=== PATIENT | male | born 1985 | race American Indian/Alaskan Native ===

== ENCOUNTER 2016-08-19 03:42 | Emergency (ER) | payer OTHER ==
[2016-08-19 12:21] VITALS: BP 128/84
[2016-08-19] MEDS ORDERED: NORCO 5/325 PO ONE (12:28)
[2016-08-19 12:44] LABS: Basophils % (Auto) 0.5 % (0.0-1.8); Eosinophils % (Auto) 2.8 % (0.0-4.3); Hematocrit 39.9 % (35.5-45.6); Hemoglobin 13.5 gm/dl (11.8-15.2); Mean Corpuscular HGB Conc 34 % (32-34); Mean Corpuscular Hemoglobin 27 pg (28-32); Mean Corpuscular Volume 79 fl (84-94); Platelet Count 209 K/mm3 (140-440); Red Blood Count 5.03 M/mm3 (3.65-5.03); Red Cell Distribution Width 14.7 % (13.2-15.2); White Blood Count 7.5 K/mm3 (4.5-11.0)
--- NOTE | 2016-08-19 12:44 | Emergency Department Report ---
- General Chief Complaint: Wound/Laceration Stated Complaint: ULCERS ON L FOOT/PAIN Time Seen by Provider: 08/19/16 12:22 Source: patient Mode of arrival: Ambulatory Limitations: No Limitations - History of Present Illness Initial Comments: 31-year-old male presents emergency department complaining of ulcerations to his left foot. Patient reports 2 areas on the sole of his left foot. One area has been present for one week. The second area has been present for 5 days. Patient reports he has been having mild, aching pain. The pain became sharp last night around 11 PM. Patient denies radiation of the pain. He denies fever. Patient does report occasional tingling in his feet. There are no other complaints. -: Gradual, week(s) (1) Extremity Location: Left: Foot Place: home Associated Symptoms: pain - Related Data Previous Rx's Medication Instructions Recorded Last Taken Type HYDROcodone/APAP 5-325 [Marion 1 each PO Q6HR PRN #30 tablet 08/19/16 Unknown Rx 5/325] Allergies Allergy/AdvReac Type Severity Reaction Status Date / Time No Known Allergies Allergy Unverified 10/19/13 01:06 ED Review of Systems ROS: Stated complaint: ULCERS ON L FOOT/PAIN Other details as noted in HPI Comment: All other systems reviewed and negative Constitutional: denies: fever Musculoskeletal: as per HPI ED Past Medical Hx - Past Medical History Previous Medical History?: Yes Hx Hypertension: Yes Hx Diabetes: Yes Additional medical history: Scoliosis - Surgical History Past Surgical History?: Yes Additional Surgical History: Cyst removed from left chest - Family History Family history: no significant - Social History Smoking Status: Never Smoker Substance Use Type: None - Medications Home Medications: Home Medications Medication Instructions Recorded Confirmed Last Taken Type HYDROcodone/APAP 5-325 [Marion 1 each PO Q6HR PRN #30 tablet 08/19/16 Unknown Rx 5/325] ED Physical Exam - General Limitations: No Limitations General appearance: alert, in no apparent distress - Head Head exam: Present: atraumatic, normocephalic - Eye Eye exam: Present: normal appearance, PERRL, EOMI - ENT ENT exam: Present: normal exam, normal orophraynx, mucous membranes moist - Neck Neck exam: Present: normal inspection, full ROM. Absent: tenderness - Respiratory Respiratory exam: Present: normal lung sounds bilaterally. Absent: respiratory distress - Cardiovascular Cardiovascular Exam: Present: regular rate, normal rhythm, normal heart sounds - GI/Abdominal GI/Abdominal exam: Present: soft, normal bowel sounds. Absent: distended, tenderness - Extremities Exam Extremities exam: Present: full ROM, other (macerated skin noted to the medial aspect of the plantar surface of the left midfoot. No surrounding erythema or drainage. There is a second ecchymotic area on the medial plantar surface of the left first MTP joint. No tenderness to palpation. No surrounding erythema. ). Absent: tenderness - Back Exam Back exam: Present: normal inspection, full ROM. Absent: tenderness - Neurological Exam Neurological exam: Present: alert, oriented X3. Absent: motor sensory deficit - Skin Skin exam: Present: warm, dry, intact ED Course Vital Signs 08/19/16 08/19/16 08/19/16 03:50 03:54 08:57 Temperature 98.8 F 98.8 F 98.3 F Pulse Rate 90 90 80 Respiratory 20 20 18 Rate Blood Pressure 155/108 136/98 Blood Pressure 155/108 [Right] O2 Sat by Pulse 100 100 99 Oximetry 08/19/16 08/19/16 08/19/16 11:08 11:10 12:00 Temperature Pulse Rate Respiratory Rate Blood Pressure 142/87 128/84 Blood Pressure [Right] O2 Sat by Pulse 99 100 100 Oximetry 08/19/16 08/19/16 12:20 12:58 Temperature 98.0 F Pulse Rate Respiratory 18 Rate Blood Pressure Blood Pressure [Right] O2 Sat by Pulse Oximetry ED Medical Decision Making - Lab Data Result diagrams: 08/19/16 12:28 08/19/16 12:28 - Medical Decision Making Lab results reviewed and discussed with the patient. Clean dressings will be applied to the wounds. Patient will be discharged home at this time to follow up with his primary care physician. - Differential Diagnosis diabetic foot ulcer Critical care attestation.: If time is entered above; I have spent that time in minutes in the direct care of this critically ill patient, excluding procedure time. ED Disposition Clinical Impression: Diabetic foot ulcer Qualifiers: Diabetes mellitus type: type 2 Laterality: left Qualified Code(s): E11.621 - Type 2 diabetes mellitus with foot ulcer; L97.529 - Non-pressure chronic ulcer of other part of left foot with unspecified severity Disposition: DISCHARGED TO HOME OR SELFCARE Is pt being admited?: No Condition: Stable Instructions: Diabetes Mellitus Type 2 in Adults (ED) Prescriptions: HYDROcodone/APAP 5-325 [Marion 5/325] 1 each PO Q6HR PRN #30 tablet PRN Reason: Pain Referrals: JOSE LINCOLN MD [Primary Care Provider] - 3-5 Days [facility] [Provider Group] - 3-5 Days Time of Disposition: 13:11
[2016-08-19 12:58] LABS: Anion Gap 18 mmol/L; BUN/Creatinine Ratio 8.57; Blood Urea Nitrogen 6 mg/dL (9-20); Calcium 8.9 mg/dL (8.4-10.2); Carbon Dioxide 25 mmol/L (22-30); Chloride 102.1 mmol/L (98-107); Glucose 241 mg/dL (75-100); Sodium 141 mmol/L (137-145)
== END 2016-08-19 14:00 | disposition home or self-care (01) ==
LOC: ED 03:42
DX: E11.621 Type 2 diabetes mellitus with foot ulcer (principal); L97.529 Non-pressure chronic ulcer of other part of left foot with unspecified severity; I10 Essential (primary) hypertension
CPT/HCPCS: 36415; 80048; 82962; 85025; 99283

== ENCOUNTER 2016-12-17 17:39 | Emergency (ER) | payer OTHER ==
--- NOTE | 2016-12-17 18:53 | Emergency Department Report ---
Chief Complaint: Wound/Laceration Stated Complaint: NAIL IN BOOT AT WORK/NEEDS TETANUS SHOT Time Seen by Provider: 12/17/16 18:52 - HPI History of Present Illness: Patient here reports that he cut his right foot on screw today at work. He states that he didn't feel it. Patient is diabetic and has neuropathy. He said when he took his steel toed boots off he noticed that his foot was read and there was a screw and side issue. Patient said he is not sure were on his foot the cut is on. Patient stated that he needed tetanus shot. Patient also said he has ulcer to that right foot. His blood sugar in triage was 145. Denies any fever or chills. Reports pain is 5 out of 10 and sore. - ROS Review of Systems: All systems are negative unless stated in HPI above - Exam Vital Signs: Vital Signs 12/17/16 18:29 Temperature 98.8 F Pulse Rate 96 H Respiratory 18 Rate Blood Pressure 130/87 O2 Sat by Pulse 100 Oximetry Physical Exam: General: This is a 31-year-old male well-nourished well-developed in no acute distress. Extremity: Right foot with bleeding and an ulcer. Tender to palpate. +2 pedal pulses. Foot is in poor condition for a diabetic. MSE screening note: Focused history and physical exam performed. Due to findings the following was ordered:SEE MDM ED Medical Decision Making - Medical Decision Making MDM: Patient screened by provider. Labs: CBC, BMP. Blood glucose at 145 POC Diagnostic: Three-view x-ray left foot ordered to rule out osteomyelitis. Patient updated on plan and he is in agreement. ED Disposition for MSE Condition: Stable
[2016-12-17 19:59] LABS: Blood Urea Nitrogen 12 mg/dL (9-20); Calcium 9.1 mg/dL (8.4-10.2); Carbon Dioxide 27 mmol/L (22-30); Glucose 131 mg/dL (75-100)
[2016-12-17 20:00] LABS: Anion Gap 15 mmol/L; Sodium 138 mmol/L (137-145)
[2016-12-17 20:03] LABS: Basophils % (Auto) 0.7 % (0.0-1.8); Eosinophils % (Auto) 2.8 % (0.0-4.3); Hematocrit 40.1 % (35.5-45.6); Hemoglobin 13.5 gm/dl (11.8-15.2); Mean Corpuscular HGB Conc 34 % (32-34); Mean Corpuscular Hemoglobin 27 pg (28-32); Mean Corpuscular Volume 80 fl (84-94); Platelet Count 246 K/mm3 (140-440); Red Blood Count 5.02 M/mm3 (3.65-5.03); Red Cell Distribution Width 14.7 % (13.2-15.2); White Blood Count 10.3 K/mm3 (4.5-11.0)
[2016-12-17 20:18] VITALS: BP 142/83
[2016-12-17] MEDS ORDERED: BOOSTRIX IM ONE (20:18)
--- NOTE | 2016-12-17 20:18 | Emergency Department Report ---
- General Chief Complaint: Wound/Laceration Stated Complaint: NAIL IN BOOT AT WORK/NEEDS TETANUS SHOT Time Seen by Provider: 12/17/16 18:52 Source: patient Mode of arrival: Ambulatory Limitations: No Limitations - History of Present Illness Initial Comments: 31-year-old male past medical history diabetes, diabetic foot ulcers presents with complaint of abrasions and possible puncture wounds right great toe. 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 States that it was not lodged in his foot but he did notice some bleeding in his distal toe region. Patient denies any significant pain. Patient has a diabetic foot ulcer that is healing on the top aspect of his right second toe with a bandage dressing on top. States he noticed pressure in his foot took his shoe off and a screw fell out of his shoe Onset/Timin -: hour(s) Location: other Extremity Location: Right: Foot (in total region) 1 - smal abrasions here Place: work Patient Tetanus UTD: No Context: accidental Associated Symptoms: none - Related Data Home Medications Medication Instructions Recorded Confirmed Last Taken Insulin Aspart Prot/Aspart(Nf) 20 units SQ DAILY 12/17/16 12/17/16 12/17/16 [NovoLOG Mix 70/30 VIAL] NovoLOG Mix 70/30 VIAL 12 units SQ HS 12/17/16 12/17/16 1 Day Ago metFORMIN [Glucophage] 500 mg PO BID 12/17/16 12/17/16 12/17/16 Previous Rx's Medication Instructions Recorded Last Taken Type Acetaminophen [Acetaminophen TAB] 500 mg PO Q6HR PRN #20 tablet 12/17/16 Unknown Rx Ciprofloxacin HCl [Ciprofloxacin 500 mg PO Q12H #14 tab 12/17/16 Unknown Rx TAB] Sulfamethoxazole/Trimethoprim 1 each PO BID #14 tablet 12/17/16 Unknown Rx [Bactrim DS TAB] Allergies Allergy/AdvReac Type Severity Reaction Status Date / Time No Known Allergies Allergy Unverified 10/19/13 01:06 ED Review of Systems ROS: Stated complaint: NAIL IN BOOT AT WORK/NEEDS TETANUS SHOT Other details as noted in HPI Constitutional: denies: chills, fever Eyes: denies: eye pain, eye discharge, vision change ENT: denies: ear pain, throat pain Respiratory: denies: cough, shortness of breath, wheezing Cardiovascular: denies: chest pain, palpitations Endocrine: no symptoms reported Gastrointestinal: denies: abdominal pain, nausea, diarrhea Genitourinary: denies: urgency, dysuria Musculoskeletal: denies: back pain, joint swelling, arthralgia Skin: denies: rash, lesions Neurological: denies: headache, weakness, paresthesias Psychiatric: denies: anxiety, depression Hematological/Lymphatic: denies: easy bleeding, easy bruising ED Past Medical Hx - Past Medical History Previous Medical History?: Yes Hx Hypertension: Yes Hx Diabetes: Yes Additional medical history: Scoliosis - Surgical History Past Surgical History?: Yes Additional Surgical History: Cyst removed from left chest - Social History Smoking Status: Never Smoker Substance Use Type: None - Medications Home Medications: Home Medications Medication Instructions Recorded Confirmed Last Taken Type Acetaminophen [Acetaminophen TAB] 500 mg PO Q6HR PRN #20 tablet 12/17/16 Unknown Rx Ciprofloxacin HCl [Ciprofloxacin 500 mg PO Q12H #14 tab 12/17/16 Unknown Rx TAB] Insulin Aspart Prot/Aspart(Nf) 20 units SQ DAILY 12/17/16 12/17/16 12/17/16 History [NovoLOG Mix 70/30 VIAL] NovoLOG Mix 70/30 VIAL 12 units SQ HS 12/17/16 12/17/16 1 Day Ago History Sulfamethoxazole/Trimethoprim 1 each PO BID #14 tablet 12/17/16 Unknown Rx [Bactrim DS TAB] metFORMIN [Glucophage] 500 mg PO BID 12/17/16 12/17/16 12/17/16 History ED Physical Exam - General Limitations: No Limitations General appearance: alert, in no apparent distress - Head Head exam: Present: atraumatic, normocephalic - Eye Eye exam: Present: normal appearance, PERRL, EOMI - ENT ENT exam: Present: mucous membranes moist - Neck Neck exam: Present: normal inspection, full ROM - Respiratory Respiratory exam: Present: normal lung sounds bilaterally. Absent: respiratory distress - Cardiovascular Cardiovascular Exam: Present: regular rate, normal rhythm. Absent: systolic murmur, diastolic murmur, rubs, gallop - GI/Abdominal GI/Abdominal exam: Present: soft, normal bowel sounds - Rectal Rectal exam: Present: deferred - Extremities Exam Extremities exam: Present: normal inspection - Expanded Lower Extremity Exam Right Hip exam: Present: normal inspection, full ROM Upper Leg exam: Present: normal inspection, full ROM Knee exam: Present: normal inspection, full ROM Lower Leg exam: Present: normal inspection, full ROM Ankle exam: Present: normal inspection, full ROM Foot/Toe exam: Present: abrasion (multiple small abrasions first and second toe) , deformity (there is a healing ulcer on the top aspect of the right second toe) , puncture wound (small puncture wound base of her right great toe) Neuro vascular tendon exam: Present: no vascular compromise (still dorsalis pedis and posterior tibial pulses are intact, distal sensation is intact to light touch and to sharp sensation) Gait: Positive: observed and normal 1 - Healing ulcer here 1 - Small puncture wound less than half a centimeter here - Back Exam Back exam: Present: normal inspection - Neurological Exam Neurological exam: Present: alert, oriented X3, CN II-XII intact, normal gait - Psychiatric Psychiatric exam: Present: normal affect, normal mood - Skin Skin exam: Present: warm, dry, intact, normal color. Absent: rash ED Course Vital Signs 12/17/16 18:29 Temperature 98.8 F Pulse Rate 96 H Respiratory 18 Rate Blood Pressure 130/87 O2 Sat by Pulse 100 Oximetry ED Medical Decision Making - Lab Data Result diagrams: 12/17/16 19:26 12/17/16 19:26 - Medical Decision Making A/P: Puncture wound right great toe 1-patient is diabetic will cover empirically with Bactrim as well as ciprofloxacin. Thighs patient to return to the ED for any fevers chills pus drainage or erythema and swelling of the right foot 2-x-ray unremarkable labs unremarkable 3-tetanus update 4-triple antibiotic ointment to abrasions 5- patient states he has podiatry appointment on Tuesday and will continue to follow-up Critical care attestation.: If time is entered above; I have spent that time in minutes in the direct care of this critically ill patient, excluding procedure time. ED Disposition Clinical Impression: Puncture wound of right great toe w/o foreign body w/o damage to nail Qualifiers: Encounter type: initial encounter Qualified Code(s): S91.131A - Puncture wound without foreign body of right great toe without damage to nail, initial encounter Disposition: TO HOME OR SELFCARE Is pt being admited?: No Does the pt Need Aspirin: No Condition: Stable Instructions: Puncture Wound (ED) Prescriptions: Acetaminophen [Acetaminophen TAB] 500 mg PO Q6HR PRN #20 tablet PRN Reason: Pain Ciprofloxacin HCl [Ciprofloxacin TAB] 500 mg PO Q12H #14 tab Sulfamethoxazole/Trimethoprim [Bactrim DS TAB] 1 each PO BID #14 tablet Referrals: RALPH MIRANDA DPM [Staff Physician] - 3-5 Days Forms: Accompanied Note, Work/School Release Form(ED) Time of Disposition: 20:24
--- NOTE | 2016-12-18 09:22 | XRay Report ---
RIGHT FOOT THREE VIEWS: 12/17/16 17:39:00 CLINICAL: Diabetic foot ulcer and soft tissue swelling. FINDINGS: No fracture or dislocation. Hallux valgus deformity. Mild degenerative change with a small plantar calcaneal spur. No bone lesions and no erosive changes in the bones. No soft tissue air. IMPRESSION: Nonspecific soft tissue swelling. No signs of osteomyelitis.
== END 2016-12-17 20:40 | disposition home or self-care (01) ==
LOC: ED 17:39
DX: S91.131A Puncture wound without foreign body of right great toe without damage to nail, initial encounter (principal); I10 Essential (primary) hypertension; E11.9 Type 2 diabetes mellitus without complications; W45.0XXA Nail entering through skin, initial encounter; Y93.89 Activity, other specified; Y99.9 Unspecified external cause status; Y92.89 Other specified places as the place of occurrence of the external cause
CPT/HCPCS: 36415; 80048; 82962; 85025; 90471; 90715

== ENCOUNTER 2016-12-18 15:08 | Emergency (ER) | payer OTHER ==
[2016-12-18 16:16] LABS: Basophils % (Auto) 0.5 % (0.0-1.8); Eosinophils % (Auto) 2.8 % (0.0-4.3); Hematocrit 41.3 % (35.5-45.6); Hemoglobin 14.1 gm/dl (11.8-15.2); Mean Corpuscular HGB Conc 34 % (32-34); Mean Corpuscular Hemoglobin 27 pg (28-32); Mean Corpuscular Volume 80 fl (84-94); Platelet Count 250 K/mm3 (140-440); Red Blood Count 5.17 M/mm3 (3.65-5.03); Red Cell Distribution Width 14.6 % (13.2-15.2); White Blood Count 10.8 K/mm3 (4.5-11.0)
[2016-12-18] MEDS ORDERED: ANCEF IM ONE (21:34)
--- NOTE | 2016-12-18 21:38 | Emergency Department Report ---
- General Chief Complaint: Wound/Laceration Stated Complaint: rt foot wound. here last pm. did not follow instructions and played soccer. now open wound Time Seen by Provider: 12/18/16 21:19 Source: patient Mode of arrival: Ambulatory Limitations: No Limitations - History of Present Illness Extremity Location: Right: Foot Place: home Patient Tetanus UTD: Yes Context: accidental Associated Symptoms: none - Related Data Home Medications Medication Instructions Recorded Confirmed Last Taken Insulin Aspart Prot/Aspart(Nf) 20 units SQ DAILY 12/17/16 12/17/16 12/17/16 [NovoLOG Mix 70/30 VIAL] NovoLOG Mix 70/30 VIAL 12 units SQ HS 12/17/16 12/17/16 1 Day Ago metFORMIN [Glucophage] 500 mg PO BID 12/17/16 12/17/16 12/17/16 Previous Rx's Medication Instructions Recorded Last Taken Type Acetaminophen [Acetaminophen TAB] 500 mg PO Q6HR PRN #20 tablet 12/17/16 Unknown Rx Ciprofloxacin HCl [Ciprofloxacin 500 mg PO Q12H #14 tab 12/17/16 Unknown Rx TAB] Sulfamethoxazole/Trimethoprim 1 each PO BID #14 tablet 12/17/16 Unknown Rx [Bactrim DS TAB] Allergies Allergy/AdvReac Type Severity Reaction Status Date / Time No Known Allergies Allergy Verified 12/18/16 15:23 ED Review of Systems ROS: Stated complaint: RT FOOT PAIN Other details as noted in HPI Comment: All other systems reviewed and negative Constitutional: no symptoms reported Eyes: as per HPI ENT: as per HPI Respiratory: no symptoms reported Cardiovascular: as per HPI Endocrine: no symptoms reported Gastrointestinal: as per HPI Genitourinary: as per HPI Musculoskeletal: as per HPI Skin: as per HPI, lesions, other (macerated and pealing tissue of r great toe p playing soccer today p getting nail in foot yesterday). denies: rash, change in color, change in hair/nails, pruritus Neurological: as per HPI ED Past Medical Hx - Past Medical History Hx Hypertension: Yes Hx CVA: No Hx Heart Attack/AMI: No Hx Congestive Heart Failure: No Hx Diabetes: Yes Hx Deep Vein Thrombosis: No Hx Pulmonary Embolism: No Hx GERD: No Hx Liver Disease: No Hx Renal Disease: No Hx of Cancer: No Hx Sickle Cell Disease: No Hx Arthritis: No Hx Headaches / Migraines: No Hx Seizures: No Hx Kidney Stones: No Hx Psychiatric Treatment: No Hx Asthma: No Hx COPD: No Hx Tuberculosis: No Hx Dementia: No Hx HIV: No Additional medical history: Scoliosis - Surgical History Additional Surgical History: Cyst removed from left chest - Social History Smoking Status: Never Smoker Substance Use Type: None - Medications Home Medications: Home Medications Medication Instructions Recorded Confirmed Last Taken Type Acetaminophen [Acetaminophen TAB] 500 mg PO Q6HR PRN #20 tablet 12/17/16 Unknown Rx Ciprofloxacin HCl [Ciprofloxacin 500 mg PO Q12H #14 tab 12/17/16 Unknown Rx TAB] Insulin Aspart Prot/Aspart(Nf) 20 units SQ DAILY 12/17/16 12/17/16 12/17/16 History [NovoLOG Mix 70/30 VIAL] NovoLOG Mix 70/30 VIAL 12 units SQ HS 12/17/16 12/17/16 1 Day Ago History Sulfamethoxazole/Trimethoprim 1 each PO BID #14 tablet 12/17/16 Unknown Rx [Bactrim DS TAB] metFORMIN [Glucophage] 500 mg PO BID 12/17/16 12/17/16 12/17/16 History ED Physical Exam - General Limitations: No Limitations General appearance: alert, in no apparent distress - Head Head exam: Present: atraumatic - Eye Eye exam: Present: normal appearance, PERRL, EOMI - ENT ENT exam: Present: normal exam - Neck Neck exam: Present: normal inspection - Respiratory Respiratory exam: Present: normal lung sounds bilaterally - Cardiovascular Cardiovascular Exam: Present: regular rate - GI/Abdominal GI/Abdominal exam: Present: soft - Rectal Rectal exam: Present: deferred - exam: Present: normal inspection - Extremities Exam Extremities exam: Present: normal inspection, full ROM, normal capillary refill. Absent: pedal edema, joint swelling - Expanded Lower Extremity Exam Right Hip exam: Present: normal inspection Upper Leg exam: Present: normal inspection Knee exam: Present: normal inspection Lower Leg exam: Present: normal inspection Ankle exam: Present: normal inspection Foot/Toe exam: Present: full ROM, tenderness, swelling, erythema, puncture wound. Absent: normal inspection (the wound of r foot got macerated while playing soccer today. nothing to repair. no necrosis no drainage. ), abrasion, laceration, ecchymosis, deformity, crepidus, dislocation, amputation, foreign body, calcaneal tenderness, tenderness at base of 5th metatarsal, nail avulsion , subungual hematoma Neuro vascular tendon exam: Present: no vascular compromise Gait: Positive: observed and normal ED Course Vital Signs 12/18/16 15:27 Temperature 98.3 F Pulse Rate 85 Respiratory 17 Rate Blood Pressure 150/100 O2 Sat by Pulse 99 Oximetry - Reevaluation(s) Reevaluation #1: 12/18/16 21:53 wound cleaned dressed chart reviewed tdap utd ancef dc home w fu Tuesday w pcp given dm cont current med regimen and wound care - Laceration /Wound Repair foot Wound Location: lower extremity (r foot) Wound Length (cm): 5 Wound's Depth, Shape: superficial Wound Explored: macerated tissue p playing soccer Irrigated w/ Saline (ccs): 100 Betadine Prep?: Yes Sterile Dressing Applied?: Yes ED Medical Decision Making - Lab Data Result diagrams: 12/18/16 15:55 - Medical Decision Making wound cleaned and dressed chart noted tdap utd ancef im discussed dm and foot care w pt will cont meds and fu tuesday along w wound care vss non ill non septic appearing no fever pt and educated on wound care. pt has appnt with his foot doctor on Tuesday dc home Critical care attestation.: If time is entered above; I have spent that time in minutes in the direct care of this critically ill patient, excluding procedure time. ED Disposition Clinical Impression: Diabetes mellitus, Wound, open, foot Disposition: OP ADMIT IP TO THIS HOSP Is pt being admited?: No Does the pt Need Aspirin: No Condition: Good Instructions: Diabetes Mellitus Type 2 in Adults (ED), Acute Wound Care (ED) Additional Instructions: take both of your antibiotics at home over the counter probiotics will prevent diarrhea eat yogurt motrin or tylenol for pain keep foot clean and dry you do not want it warm and moist in a large shoe NO sports follow up pcp on Tuesday to recheck healing diabetic diet follow blood sugar' take dm meds change dressing twice per day starting in AM Clean with 1/2 normal saline and 1/2 betadine mixture and apply a non adhesive dressing. additional type of wound care will be described on Tuesday. Referrals: PRIMARY CARE, [Primary Care Provider] - 3-5 Days Forms: Work/School Release Form(ED) Time of Disposition: 21:58
[2016-12-18 22:38] VITALS: BP 117/88
== END 2016-12-18 22:40 | disposition admitted as inpatient to this hospital (09) ==
LOC: ED 15:08
DX: S91.301A Unspecified open wound, right foot, initial encounter (principal); I10 Essential (primary) hypertension; E11.9 Type 2 diabetes mellitus without complications; Z79.4 Long term (current) use of insulin; X58.XXXA Exposure to other specified factors, initial encounter; Y93.61 Activity, american tackle football; Y99.8 Other external cause status; Y92.39 Other specified sports and athletic area as the place of occurrence of the external cause
CPT/HCPCS: 36415; 82962; 85025; 96372; 99283; J0690